=== PATIENT | female | born 1970 | race Caucasian/White ===

== ENCOUNTER 2020-06-08 12:44 | Outpatient (CLI) | payer BC, SELFPAY ==
--- NOTE | 2020-06-08 12:53 | XRR_ITS ---
PROCEDURE INFORMATION: Exam: XR Right Knee Exam date and time: 06/08/2020 1:05 PM Age: 49 years old Clinical indication: Right; Patient HX: C/O pain RT knee x 6 months; Additional info: Knee pain TECHNIQUE: Imaging protocol: XR Right knee. Views: 3 views. COMPARISON: No relevant prior studies available. FINDINGS: Bones/joints: There is a mild narrowing and sclerosis in the medial compartment with a bone spur involving the medial condyle of the femur. These findings are consistent with mild osteoarthritis. The lateral compartment and patellofemoral compartment are unremarkable. The exam is negative for acute bony abnormalities. Soft tissues: There is a small suprapatellar bursa effusion XR/XR knee RT 3V* [id number] IMPRESSION: No acute bony abnormality Mild osteoarthritis. Small suprapatellar bursa effusion
== END 2020-06-08 12:45 | disposition home or self-care (01) ==
PROVIDERS: Family Provider Family Medicine; Visit Provider Family Medicine
DX: M17.11 Unilateral primary osteoarthritis, right knee (principal); M25.461 Effusion, right knee
CPT/HCPCS: 73562

== ENCOUNTER 2020-07-06 10:13 | Outpatient (CLI) | payer BC, SELFPAY ==
--- NOTE | 2020-07-06 10:32 | MR_ITS ---
WS: [id number] MRI BRAIN WITHOUT CONTRAST HISTORY: DIZZINESS Study was ordered with contrast but patient has refused contrast at this time. COMPARISON: None available. TECHNIQUE: Diffusion imaging, multiplanar T1, T2 and FLAIR imaging obtained. Large well-circumscribed mass with varied signal intensity centered in the posterior RIGHT frontal re gion. Mass measures 3.9 x 4.3 x 4.9 cm. Low signal on the T1 sequence with mixed intermediate and low signal on the T2 and FLAIR signals. There are a few scattered areas within the mass which may be hem osiderin or calcification. ADC map is low signal in the diffusion sequence is increased signal. This is a well-circumscribed mass with slight lobulation. Due to the CSF clefts in the displacement of the cerebrum this is probably an extra-axial mass. Mass is causing approximately 5.5 mm of midline shift to the LEFT. No remote or acute infarcts are volume loss. No ventriculomegaly. No inferior displacement of cerebellar tonsils. The sella turcica and pituitary gland are unremarkabl e. Posterior fossa is also unremarkable. Dural venous sinuses and [place] demonstrate no abnormality on this unenhanced studies. Paranasal sinuses: Clear. Mastoid air cells: Normal. Calvarium and scalp: Intact. Notified Alvarez Cabrera MD at 07/06/2020 1:[address] Cabrera was not available at this time. Report made available for his review. MR/MR head wo con* [id number] IMPRESSION: 1. RIGHT frontal lobe mass measures 3.9 x 4.3 x 4.9 cm with shift of the midli ne structures by 5.5 mm to the LEFT. This may be benign meningioma, suspect ma ss may be extra-axial. Patient refused IV contrast for this examination. Post c ontrast imaging would provide additional information. 2. No ventriculomegaly.
== END 2020-07-06 10:14 | disposition home or self-care (01) ==
LOC: RADSHAW 10:15
PROVIDERS: PCP Family Medicine; Visit Provider Family Medicine
DX: R42 Dizziness and giddiness (principal); R22.0 Localized swelling, mass and lump, head
CPT/HCPCS: 70551

== ENCOUNTER → 2020-09-11 10:19 | Outpatient (BNVA) | payer BC, SELFPAY | PROVIDERS: PCP Family Medicine; Visit Provider Obstetrics & Gynecology | DX: Z12.4 Encounter for screening for malignant neoplasm of cervix (principal) | CPT/HCPCS: 88175 ==

== ENCOUNTER 2020-10-12 12:55 | Outpatient (CLI) | payer BC, SELFPAY ==
--- NOTE | 2020-10-12 13:00 | MM_ITS ---
WS: [id number] BILATERAL DIGITAL SCREENING MAMMOGRAPHY WITH CAD CLINICAL INFORMATION: SCREENING HISTORY: Screening mammogram. No current complaints. COMPARISON: [id number] TECHNIQUE: Bilateral CC and MLO views. FINDINGS: The breasts are composed of heterogeneous fibroglandular density tissue, which can limit the detectio n of small underlying mass lesions. No suspicious mass, asymmetry, calcifications, or architectural d istortion. No evidence of malignancy. MM/[place] [id number] IMPRESSION: BI-RADS: 1-Negative FOLLOW UP: 1 Year Follow-up Recommend return to annual screening mammography.
== END 2020-10-12 12:56 | disposition home or self-care (01) ==
LOC: RADSHAW 12:59
PROVIDERS: PCP Family Medicine; Visit Provider Family Medicine
DX: Z12.31 Encounter for screening mammogram for malignant neoplasm of breast (principal)
CPT/HCPCS: 77067

== ENCOUNTER 2020-10-18 10:37 | Outpatient (CLI) | payer BC, SELFPAY ==
--- NOTE | 2020-10-18 10:42 | FL_ITS ---
WS: [id number] Exam: FL barium swallow modified [id number] Date/Time of Exam: 10/18/2020 10:45 AM Reason For Exam: Other dysphagia Fluoroscopy time: 3.2 minutes Modified barium swallow was performed in conjunction with the speech therapy department. Swallowing function at the level of oropharynx was normal. There was no sign of aspiration or penetra tion into the laryngeal inlet. The patient tolerated thin liquid, pudding consistency and solid bariu m mixture foodstuffs without aspiration or penetration. Esophageal motility was grossly normal. FL/FL barium swallow modifd [id number] IMPRESSION: 1. Modified barium swallow showing no evidence of aspiration or penetration int o the laryngeal inlet.
== END 2020-10-18 10:38 | disposition home or self-care (01) ==
LOC: RAD 10:40
PROVIDERS: PCP Family Medicine; Visit Provider Family Medicine
DX: R13.19 Other dysphagia (principal)
CPT/HCPCS: 74230; 92611

== ENCOUNTER 2020-11-14 09:33 | Outpatient (CLI) | payer BC, SELFPAY ==
--- NOTE | 2020-11-14 09:38 | FL_ITS ---
WS: [id number] HISTORY: Patient with nonspecific upper abdominal symptoms. UPPER GI AND SMALL BOWEL FOLLOW THROUGH 11/14/2020. The piece dyeing machine tender film demonstrates a 5 mm left renal calculus. ESOPHAGUS: The swallowing of barium was unremarkable. No abnormality in the cervical esophagus. The thoracic esophagus demonstrated significantly altered motility with retention of barium even in t he upright position. There were multiple tertiary contractions. A small pulsion diverticulum was see n in the mid esophagus during the examination. There was a great deal of spasm at the gastroesophagea l junction however a extensive stricture could not be demonstrated. Small sliding hiatal hernia witho ut significant reflux. The stomach, duodenum, and duodenal sweep were unremarkable. Small bowel: There was fairly rapid transit of barium through the small bowel and into the colon. Mul tiple small bowel loops were evaluated with compression under fluoroscopy. Normal mucosa and normal c aliber of the small bowel. Normal terminal ileum. FL/FL upperGI air smallbowel ser* IMPRESSION: 5 mm left renal calculus. There is significant esophageal dysmotility as described above. The remainder o f the GI tract to the colon was unremarkable.
== END 2020-11-14 09:34 | disposition home or self-care (01) ==
PROVIDERS: PCP Family Medicine; Visit Provider Family Medicine
DX: E79.0 Hyperuricemia without signs of inflammatory arthritis and tophaceous disease (principal); R14.0 Abdominal distension (gaseous); K21.9 Gastro-esophageal reflux disease without esophagitis
CPT/HCPCS: 74246; 74248

== ENCOUNTER → 2021-12-20 13:28 | Outpatient (BNVA) | payer MEDICAID, SELFPAY | PROVIDERS: PCP Family Medicine; Visit Provider Nurse Practitioner Psychiatric/Mental Health | DX: F33.1 Major depressive disorder, recurrent, moderate (principal) | CPT/HCPCS: 90792 ==

== ENCOUNTER 2021-12-24 13:36 | Outpatient (CLI) | payer MEDICAID, SELFPAY ==
--- NOTE | 2021-12-24 14:00 | MM_ITS ---
WS: [id number] BILATERAL DIGITAL SCREENING MAMMOGRAPHY WITH CAD CLINICAL INFORMATION: Z12.39 - Encounter for other screening for malignant neop... HISTORY: Screening mammogram. No current complaints. COMPARISON: October 12, 2020 TECHNIQUE: Bilateral CC and MLO views. FINDINGS: Scattered fibroglandular densities bilaterally. No suspicious focal mass, asymmetry, calcifications, or architectural distortion. No evidence of malignancy. MM/[place] [id number] IMPRESSION: BI-RADS: 1-Negative FOLLOW UP: 1 Year Follow-up Recommend return to annual screening mammography.
== END 2021-12-24 13:37 | disposition home or self-care (01) ==
PROVIDERS: PCP Family Medicine; Visit Provider Obstetrics & Gynecology
DX: Z12.31 Encounter for screening mammogram for malignant neoplasm of breast (principal)
CPT/HCPCS: 77067

== ENCOUNTER → 2022-01-14 13:45 | Outpatient (BNVA) | payer MEDICAID, SELFPAY | PROVIDERS: PCP Family Medicine; Visit Provider Nurse Practitioner Psychiatric/Mental Health | DX: F33.1 Major depressive disorder, recurrent, moderate (principal); E03.9 Hypothyroidism, unspecified | CPT/HCPCS: 99214 ==

== ENCOUNTER 2022-02-14 12:00 | Outpatient (CLI) | payer MEDICAID, SELFPAY | END 2022-02-14 12:01 | disposition home or self-care (01) | LOC: SLEEP 02-18 08:38 | PROVIDERS: PCP Family Medicine; Visit Provider Family Medicine | DX: G47.33 Obstructive sleep apnea (adult) (pediatric) (principal) | CPT/HCPCS: G0399 ==

== ENCOUNTER → 2022-02-18 14:49 | Outpatient (BNVA) | payer MEDICAID, SELFPAY | PROVIDERS: PCP Family Medicine; Visit Provider Nurse Practitioner Psychiatric/Mental Health | DX: F33.1 Major depressive disorder, recurrent, moderate (principal); E03.9 Hypothyroidism, unspecified | CPT/HCPCS: 99213 ==

== ENCOUNTER → 2022-04-19 13:41 | Outpatient (BNVA) | payer MEDICAID, SELFPAY | PROVIDERS: PCP Family Medicine; Visit Provider Counselor Professional | DX: F33.1 Major depressive disorder, recurrent, moderate (principal) | CPT/HCPCS: 90837; 90834 ==

== ENCOUNTER → 2022-04-22 09:27 | Outpatient (BNVA) | payer MEDICAID, SELFPAY | PROVIDERS: PCP Family Medicine; Visit Provider Internal Medicine Rheumatology | DX: M15.9 Polyosteoarthritis, unspecified (principal); Z79.899 Other long term (current) drug therapy; M10.9 Gout, unspecified | CPT/HCPCS: 73630; 84550; 85651; 86140; 86200; 86431; 99204; 99214 ==

== ENCOUNTER → 2022-04-26 14:47 | Outpatient (BNVA) | payer MEDICAID, SELFPAY | PROVIDERS: PCP Family Medicine; Visit Provider Counselor Professional | DX: F33.1 Major depressive disorder, recurrent, moderate (principal) | CPT/HCPCS: 90834 ==

== ENCOUNTER → 2022-05-02 09:50 | Outpatient (BNVA) | payer MEDICAID, SELFPAY | PROVIDERS: PCP Family Medicine; Visit Provider Counselor Professional | DX: F33.1 Major depressive disorder, recurrent, moderate (principal) | CPT/HCPCS: 90834 ==

== ENCOUNTER → 2022-05-08 09:54 | Outpatient (BNVA) | payer MEDICAID, SELFPAY | PROVIDERS: PCP Family Medicine; Visit Provider Counselor Professional | DX: F33.1 Major depressive disorder, recurrent, moderate (principal) | CPT/HCPCS: 90834 ==

== ENCOUNTER → 2022-05-13 14:44 | Outpatient (BNVA) | payer MEDICAID, SELFPAY | PROVIDERS: PCP Family Medicine; Visit Provider Nurse Practitioner Psychiatric/Mental Health | DX: F33.1 Major depressive disorder, recurrent, moderate (principal); G47.33 Obstructive sleep apnea (adult) (pediatric); Z99.89 Dependence on other enabling machines and devices | CPT/HCPCS: 99214 ==

== ENCOUNTER → 2022-05-16 13:51 | Outpatient (BNVA) | payer MEDICAID, SELFPAY | PROVIDERS: PCP Family Medicine; Visit Provider Counselor Professional | DX: F33.1 Major depressive disorder, recurrent, moderate (principal) | CPT/HCPCS: 90834 ==

== ENCOUNTER → 2022-05-30 13:52 | Outpatient (BNVA) | payer MEDICAID, SELFPAY | PROVIDERS: PCP Family Medicine; Visit Provider Counselor Professional | DX: F33.1 Major depressive disorder, recurrent, moderate (principal) | CPT/HCPCS: 90834 ==

== ENCOUNTER 2022-06-06 13:19 | Outpatient (CLI) | payer MEDICAID, SELFPAY ==
[2022-06-06 13:58] LABS: Uric Acid 5.3 mg/dL (2.4-5.7)
== END 2022-06-06 13:20 | disposition home or self-care (01) ==
LOC: LAB 13:23
PROVIDERS: PCP Family Medicine; Visit Provider Internal Medicine Rheumatology
DX: M10.9 Gout, unspecified (principal)
CPT/HCPCS: 84550

== ENCOUNTER → 2022-07-23 14:36 | Outpatient (BNVA) | payer MEDICAID, SELFPAY | PROVIDERS: PCP Family Medicine; Visit Provider Internal Medicine Rheumatology | DX: M17.0 Bilateral primary osteoarthritis of knee (principal); M18.0 Bilateral primary osteoarthritis of first carpometacarpal joints; M10.9 Gout, unspecified | CPT/HCPCS: 99214 ==

== ENCOUNTER 2022-08-15 06:00 | Outpatient (RCR) | payer MEDICAID, SELFPAY | END 2022-08-30 23:59 | disposition home or self-care (01) | LOC: SPT 06:00 | PROVIDERS: PCP Family Medicine; Visit Provider Internal Medicine Rheumatology | DX: M19.90 Unspecified osteoarthritis, unspecified site (principal); M25.569 Pain in unspecified knee; G89.29 Other chronic pain | CPT/HCPCS: 97161 ==

== ENCOUNTER → 2022-09-09 14:35 | Outpatient (BNVA) | payer MEDICAID, SELFPAY | PROVIDERS: PCP Family Medicine; Referring Provider Internal Medicine Rheumatology; Visit Provider Specialist | DX: M17.0 Bilateral primary osteoarthritis of knee (principal); M21.161 Varus deformity, not elsewhere classified, right knee; M21.162 Varus deformity, not elsewhere classified, left knee | CPT/HCPCS: 73560; 73565 ==

== ENCOUNTER → 2022-11-08 14:50 | Outpatient (BNVA) | payer MEDICAID, SELFPAY | PROVIDERS: PCP Family Medicine; Visit Provider Obstetrics & Gynecology | DX: Z01.419 Encounter for gynecological examination (general) (routine) without abnormal findings (principal) | CPT/HCPCS: 87624 ==

== ENCOUNTER 2023-01-23 13:51 | Outpatient (CLI) | payer MEDICAID, SELFPAY ==
--- NOTE | 2023-01-23 14:03 | MM_ITS ---
WS: [id number] BILATERAL 3D TOMOSYNTHESIS DIGITAL SCREENING MAMMOGRAPHY WITH CAD CLINICAL INFORMATION: SCREENING HISTORY: Screening mammogram. No current complaints. COMPARISON: December 24, 2021 TECHNIQUE: Bilateral CC and MLO views. FINDINGS: Scattered fibroglandular densities bilaterally. No suspicious focal mass, asymmetry, calcifications, or architectural distortion. No evidence of malignancy. MM/[place] [id number] IMPRESSION: BI-RADS: 1-Negative FOLLOW UP: 1 Year Follow-up Recommend return to annual screening mammography.
== END 2023-01-23 13:52 | disposition home or self-care (01) ==
PROVIDERS: PCP Family Medicine; Visit Provider Family Medicine
DX: Z12.31 Encounter for screening mammogram for malignant neoplasm of breast (principal)
CPT/HCPCS: 77063; 77067

== ENCOUNTER 2023-03-04 10:21 | Outpatient (CLI) | payer MEDICAID, SELFPAY ==
[2023-03-04 10:47] LABS: Basophils # 0.1 10^3/uL (0.0-0.1); Basophils % 0.8 %; Eosinophils # 0.5 10^3/uL (0.0-0.8); Eosinophils % 6.1 %; Hematocrit 41.8 % (37.0-47.0); Hemoglobin 13.6 g/dL (11.5-15.3); Lymphocytes # 2.9 10^3/uL (0.8-4.8); Lymphocytes % 37.2 %; Mean Corpuscular HGB Conc 32.5 g/dL (30.0-36.0); Mean Corpuscular Hemoglobin 28.9 pg (28.0-34.0); Mean Corpuscular Volume 88.7 fl (81-99); Mean Platelet Volume 9.5 fL (7.4-10.4); Monocytes # 0.4 10^3/uL (0.2-0.9); Monocytes % 5.6 %; Neutrophils # 3.85 10^3/uL (1.8-7.7); Neutrophils % 49.9 %; Nucleated Red Blood Cells % 0 %; Platelet Count 264 10^3/cmm (130-400); Red Blood Count 4.71 10^6/uL (4.1-5.3); Red Cell Distribution Width 13.2 % (12.1-15.1); White Blood Count 7.7 10^3/uL (4.0-10.0)
[2023-03-04 11:10] LABS: Alanine Aminotransferase 23 U/L (0-33); Alkaline Phosphatase 94 U/L (35-105); Aspartate Amino Transferase 14 U/L (0-32); C Reactive Protein 7.3 mg/L (0.0-4.9); Globulin 2.7 g/dL (1.3-4.6); Glomerular Filtration Rate 87.2 mL/min (90-130); Total Bilirubin 0.2 mg/dL (0.15-1.2); Total Protein 6.7 g/dL (6.6-8.7); Uric Acid 4.8 mg/dL (2.4-5.7)
== END 2023-03-04 10:22 | disposition home or self-care (01) ==
PROVIDERS: PCP Family Medicine; Visit Provider Internal Medicine Rheumatology
DX: M10.9 Gout, unspecified (principal); Z79.899 Other long term (current) drug therapy; M19.90 Unspecified osteoarthritis, unspecified site
CPT/HCPCS: 36415; 80076; 82565; 84550; 85025; 86140

== ENCOUNTER → 2023-03-05 11:27 | Outpatient (BNVA) | payer MEDICAID, SELFPAY | PROVIDERS: PCP Family Medicine; Visit Provider Internal Medicine Rheumatology | DX: M54.2 Cervicalgia (principal); G89.29 Other chronic pain | CPT/HCPCS: 72040 ==

== ENCOUNTER 2023-06-26 13:32 | Outpatient (CLI) | payer MEDICAID, SELFPAY ==
[2023-06-26 14:26] LABS: Erythrocyte Sedimentation Rate 18 mm/hr (0-15)
[2023-06-26 14:36] LABS: C Reactive Protein 6.4 mg/L (0.0-4.9)
[2023-06-27 16:34] LABS: Anti-Nuclear Antibody Screen NEGATIVE (NEGATIVE)
[2023-06-27 23:54] LABS: HLA-B27 NEGATIVE (NEGATIVE)
[2023-07-07 20:14] LABS: 14.3.3 ETA Protein 0.3 ng/mL (<0.2)
== END 2023-06-26 13:33 | disposition home or self-care (01) ==
LOC: LAB 13:37
PROVIDERS: PCP Family Medicine; Visit Provider Internal Medicine Rheumatology
DX: M10.9 Gout, unspecified (principal); M19.90 Unspecified osteoarthritis, unspecified site; M45.6 Ankylosing spondylitis lumbar region
CPT/HCPCS: 36415; 83520; 85651; 86038; 86140; 86812

== ENCOUNTER → 2023-09-09 10:08 | Outpatient (BNVA) | payer MEDICAID, SELFPAY | PROVIDERS: PCP Family Medicine; Visit Provider Family Medicine | DX: Z51.81 Encounter for therapeutic drug level monitoring (principal); R73.09 Other abnormal glucose; Z13.220 Encounter for screening for lipoid disorders; R03.0 Elevated blood-pressure reading, without diagnosis of hypertension; E55.9 Vitamin D deficiency, unspecified; F32.9 Major depressive disorder, single episode, unspecified; E03.9 Hypothyroidism, unspecified | CPT/HCPCS: 80053; 80061; 82306; 83036; 84550; 85025 ==

== ENCOUNTER → 2023-10-08 13:08 | Outpatient (BNVA) | payer MEDICAID, SELFPAY | PROVIDERS: PCP Family Medicine; Visit Provider Family Medicine | DX: R74.01 Elevation of levels of liver transaminase levels (principal); R73.03 Prediabetes; Z51.81 Encounter for therapeutic drug level monitoring | CPT/HCPCS: 80053; 83036; 85025; 85651; 86141; 86803; 87340 ==

== ENCOUNTER 2023-10-30 08:51 | Outpatient (CLI) | payer MEDICAID, SELFPAY ==
--- NOTE | 2023-10-30 09:30 | US_ITS ---
WS: [id number] RIGHT UPPER QUADRANT ULTRASOUND HISTORY: Elevated transaminases COMPARISON: None available. Liver: 19.1 cm in length. Moderately enlarged liver. Mild diffuse hepatic steatosis. There are also f ocal areas of fatty sparing. No mass or bile duct dilatation. Portal Vein: Normal hepatopetal flow with monophasic waveform. Gallbladder: Prior cholecystectomy. CBD: 0.5 cm Pancreas: Normal size and echogenicity. Right kidney: 11.1 cm in length. Normal size and echogenicity. No hydronephrosis or mass. Aorta and IVC: Unremarkable abdominal aorta and IVC. No ascites. IMPRESSION: 1. Moderate thyromegaly and mild hepatic steatosis with areas of fatty sparing. 2. Prior cholecystectomy.
== END 2023-10-30 08:52 | disposition home or self-care (01) ==
LOC: RAD 08:52
PROVIDERS: PCP Family Medicine; Visit Provider Family Medicine
DX: R74.01 Elevation of levels of liver transaminase levels (principal); R10.9 Unspecified abdominal pain; E01.0 Iodine-deficiency related diffuse (endemic) goiter; K76.0 Fatty (change of) liver, not elsewhere classified; Z90.49 Acquired absence of other specified parts of digestive tract
CPT/HCPCS: 76705

== ENCOUNTER → 2023-12-17 13:24 | Outpatient (BNVA) | payer MEDICAID, SELFPAY | PROVIDERS: PCP Family Medicine; Visit Provider Clinical Nurse Specialist Adult Health | DX: N39.0 Urinary tract infection, site not specified (principal) | CPT/HCPCS: 81000; 87086 ==

== ENCOUNTER 2024-01-28 14:46 | Outpatient (CLI) | payer MEDICAID, SELFPAY ==
--- NOTE | 2024-01-28 14:51 | MM_ITS ---
WS: [id number] BILATERAL 3D TOMOSYNTHESIS DIGITAL SCREENING MAMMOGRAPHY WITH CAD CLINICAL INFORMATION: SCREENING HISTORY: Screening mammogram. No current complaints. COMPARISON: 01/23/2023 TECHNIQUE: Bilateral CC and MLO views. FINDINGS: Scattered fibroglandular densities bilaterally. No suspicious focal mass, asymmetry, calcifications, or architectural distortion. No evidence of malignancy. IMPRESSION: MM/[place] [id number] BI-RADS: 1-Negative FOLLOW UP: 1 Year Follow-up Recommend return to annual screening mammography.
== END 2024-01-28 14:47 | disposition home or self-care (01) ==
LOC: RAD 14:47
PROVIDERS: PCP Family Medicine; Visit Provider Family Medicine
DX: Z12.31 Encounter for screening mammogram for malignant neoplasm of breast (principal)
CPT/HCPCS: 77063; 77067

== ENCOUNTER 2024-05-05 20:00 | Outpatient (CLI) | payer MEDICAID, SELFPAY | END 2024-05-05 20:01 | disposition home or self-care (01) | LOC: SLEEP 05-06 06:11 | PROVIDERS: PCP Family Medicine; Visit Provider Nurse Practitioner Psychiatric/Mental Health | DX: R53.83 Other fatigue (principal) | CPT/HCPCS: 95810 ==

== ENCOUNTER 2024-05-11 16:46 | Outpatient (CLI) | payer MEDICAID, SELFPAY ==
--- NOTE | 2024-05-11 16:54 | XRR_ITS ---
PROCEDURE INFORMATION: Exam: XR Chest Exam date and time: 05/11/2024 4:56 PM Age: 53 years old Clinical indication: Cough and wheezing; Prior surgery; Surgery date: 6+ months; Patient HX: HX of vocal cord cancer, coughing and wheezing x 2 weeks, progressively worse; Additional info: Cough, wheezing TECHNIQUE: Imaging protocol: Radiologic exam of the chest. Views: 2 views. COMPARISON: CR XR cervical spine 3V* [id number] 03/05/2023 11:36 AM FINDINGS: Lungs: Unremarkable. No consolidation. There is elevation of the right hemidiaphragm. Pleural spaces: Unremarkable. No pleural effusion. No pneumothorax. Heart/Mediastinum: Unremarkable. No cardiomegaly. Bones/joints: There is a scoliotic curvature convex right. XR/XR chest 2V* [id number] IMPRESSION: No acute findings.
== END 2024-05-11 16:47 | disposition home or self-care (01) ==
LOC: RAD 16:47
PROVIDERS: PCP Family Medicine; Visit Provider Family Medicine
DX: J40 Bronchitis, not specified as acute or chronic (principal); Z85.21 Personal history of malignant neoplasm of larynx; J98.6 Disorders of diaphragm
CPT/HCPCS: 71046

== ENCOUNTER → 2024-08-25 09:52 | Outpatient (BNVA) | payer MEDICAID, SELFPAY | PROVIDERS: PCP Family Medicine; Visit Provider Family Medicine | DX: R30.0 Dysuria (principal) | CPT/HCPCS: 81000 ==

== ENCOUNTER → 2024-08-30 13:25 | Outpatient (BNVA) | payer MEDICAID, SELFPAY | PROVIDERS: PCP Family Medicine; Visit Provider Family Medicine | DX: R30.0 Dysuria (principal) | CPT/HCPCS: 87086 ==

== ENCOUNTER 2024-12-04 16:50 | Emergency (ER) | payer MEDICAID, SELFPAY ==
[2024-12-04 16:57] VITALS: BP 169/86; PULSE 91; RESP 16; TEMP 36.5; O2SAT 97
--- NOTE | 2024-12-04 17:18 | W.ED.NAVMDI ---
Documented by User: Sami Seo DO 12/08/24 09:19 HPI - Nausea/Vomiting/Diarrhea General: Chief complaint: Nausea/Vomiting/Diarrhea Stated complaint: dizzy; nausea Time Seen by Provider: 12/04/24 17:08 History of Present Illness: 54-year-old female presents to the emergency room with complaint of nausea vomiting started 2 hours ago she had some dizziness as well. She has had dizziness for about 5 days no fever sweats chills no medic easy melena hematemesis cough Alvarez but she previously has had a cholecystectomy. Associated nausea: Yes Associated symtoms: Reports nausea; Denies chest pain or dysuria Related Data Home Medications Medication Instructions Recorded Confirmed mometasone 50 mcg/actuation nasal 2 spray intranasal DAILY PRN 09/11/20 11/29/24 spray (Nasonex) multivitamin combination no.55 See Rx Instructions PO .COMPLEX 09/11/20 11/29/24 loratadine 10 mg tablet (Claritin) 10 mg PO DAILY PRN 12/20/21 11/29/24 famotidine 20 mg tablet 20 mg PO BID 09/09/23 11/29/24 levothyroxine 100 mcg tablet 100 mcg PO DAILY 10/16/23 11/29/24 (Synthroid) pregabalin 25 mg capsule (Lyrica) 75 mg PO BID 08/24/24 11/29/24 liraglutide 0.6 mg/0.1 mL (18 mg/3 1.8 mg SUBCUT DAILY 11/29/24 11/29/24 mL) subcutaneous pen injector (Victoza 2-Jacky) Previous Rx's Medication Instructions Recorded tubing #1 ea 11/29/22 cyclobenzaprine 10 mg tablet 10 mg PO TID PRN muscle spasm #30 03/05/23 tabs diclofenac sodium 1 % topical gel 2 g topical QID #100 grams 04/29/23 simethicone 125 mg chewable tablet 125 mg PO TID PRN abdominal 04/29/23 (Gas Relief (simethicone)) distention #90 tabs albuterol sulfate 90 mcg/actuation 2 puff inhalation Q6H PRN 05/11/24 aerosol inhaler (ProAir HFA) shortness of breath or wheezing #8.5 grams Oxygen via nc 2l/min #1 ea 06/01/24 meloxicam 15 mg tablet See Rx Instructions .Route 08/04/24 .COMPLEX #90 tabs fluoxetine 20 mg/5 mL (4 mg/mL) 20 mg (5 mL) PO QAM #120 mL 08/24/24 oral solution Oxygen mask #1 ea 09/03/24 allopurinol 300 mg tablet 300 mg PO DAILY #90 tabs 10/05/24 alprazolam 0.25 mg tablet 0.25 mg PO .COMPLEX PRN anxiety 10/25/24 #60 tabs zolpidem 10 mg tablet 10 mg PO .qhs for sleep #30 tabs 11/05/24 ibuprofen 100 mg/5 mL oral See Rx Instructions .Route 11/29/24 suspension (Children's Ibuprofen) .COMPLEX #473 mL meclizine 25 mg tablet 25 mg PO TID PRN dizziness #20 tabs 12/04/24 ondansetron 4 mg disintegrating 4 mg PO Q8H #20 tabs 12/04/24 tablet Allergies Allergy/AdvReac Type Severity Reaction Status Date / Time latex Allergy Severe Unknown Verified 08/24/24 14:50 leflunomide AdvReac Intermediate N/V Verified 08/24/24 14:50 tramadol AdvReac Intermediate nausea/vomi Verified 08/24/24 14:50 ting bupropion [From Wellbutrin] AdvReac Unknown Vomiting Verified 08/24/24 14:50 lithium AdvReac Unknown Vomiting Verified 08/24/24 14:50 Review of Systems Const: Denies: fever(s) or chills Card: Denies: chest pain Resp: Denies: dyspnea GI: Reports: nausea and vomiting; Denies: abdominal pain : Denies: dysuria, urinary frequency or urinary urgency Musc: Denies: neck pain or back pain Skin/Breast: Denies: rash PFSH ED PFSH: Medical History Fatigue Major depressive disorder, recurrent, in partial remission Anxiety Insomnia Osteoarthritis of carpometacarpal (CMC) joint of both thumbs Attention deficit disorder of adult MARIA GUADALUPE on CPAP Osteoarthritis of knees, bilateral Psychiatric care Gout Diagnosed in 2019 and is on medication for this managed by her primary care provider Meningioma, cerebral Surgical removal on 08/14/2020. Work on changing her medication shortly after surgery but has not needed to continue this. -Follows with neurosurgeon Dr. Sarah Owusu in [facility] Laryngeal cancer (~1992) Diagnosed in 1992 and she just had a biopsy. Also had radiation in 1992. Depression Anxiety and depression diagnosed in 2016 and has been on medication managed by her primary care provider Hypothyroidism Diagnosed in her 30s and has been on medication managed by her [employer] consultant Dr. Davidson in [place] Surgical History S/P biopsy (~01/2008) Excision of mass from vocal cords S/P biopsy (~1992) Vocal cord biopsy. Diagnosed with laryngeal cancer. S/P brain surgery (08/14/20) Meningioma removed. Performed at [facility] in [place], [place] S/P laparoscopic cholecystectomy (~03/2000) Performed in [place], [place] Family History Mother Hyperlipidemia Hypertension Thyroid disease CAD (coronary artery disease) Grandmother Stroke Paternal grandmother: TIA Hypertension Paternal Father Hypertension Heart disease Family/Other Breast cancer Cousin x 2, diagnosed in late 50s Denies family history of Colon cancer Ovarian cancer Uterine cancer Social History Smoking and tobacco/nicotine status: never used tobacco/nicotine Alcohol intake: never Substance/Drug Use: never Physical Exam Const: COMMON NORMALS: no acute distress GENERAL APPEARANCE: cooperative and comfortable ORIENTATION/CONSCIOUSNESS: Yes awake, Yes oriented to person, Yes oriented to place and Yes oriented to time HENMT: COMMON NORMALS: normocephalic, atraumatic and hearing grossly normal bilaterally HEAD & SCALP: normocephalic and atraumatic Resp: COMMON NORMALS: normal respiratory effort, No retractions, No use of accessory muscles and clear to auscultation bilaterally AUSCULTATION: clear to auscultation bilaterally Cardio: COMMON NORMALS: regular rate, regular rhythm and No murmurs present (Cardio) RATE: regular rate RHYTHM: regular rhythm GI: COMMON NORMALS: Soft to palpation and No hepatosplenomegaly present AUSCULTATION: Yes normoactive bowel sounds PALPATION: Yes Soft to palpation, No Tenderness to palpation present (GI), No Guarding due to palpation present (GI) and Yes No hepatosplenomegaly present Extremity: COMMON NORMALS: normal to inspection, capillary refill normal, no clubbing, cyanosis or edema, no calf tenderness and no pedal edema Neuro: SENSORIUM/ORIENTATION: Yes oriented to person, Yes oriented to place and Yes oriented to time Skin: COMMON NORMALS: no rashes or lesions noted GENERAL SKIN EXAM: no rashes or lesions noted Course Vital Signs: Vital signs: Vital Signs Temperature 97.7 F 12/04/24 16:57 Pulse Rate 78 12/04/24 21:38 Respiratory Rate 18 12/04/24 21:38 Blood Pressure 154/98 12/04/24 21:38 Pulse Oximetry 98 12/04/24 21:38 Oxygen Delivery Me thod Room Air 12/04/24 18:26 MDM - Nausea/Vomiting/Diarrhea Medical Decision Making Care signed out to Dr. Magallanes at change of shift. See final notes for diagnosis and disposition. 54-year-old female checked out to me at shift change. She has dizziness, nausea and vomiting. Exam is as above. CBC is normal. BMP is not remarkable. Liver enzymes are not remarkable significantly. Her lipase is 20. CT of the head shows prior craniotomy changes without hemorrhage or swelling. Abdominal CT shows nothing acute. The patient has walked without assistance in the emergency room. No further vomiting since Zofran. She will be allowed discharge. Lab Data 12/04/24 17:00 12/04/24 17:00 Radiology Impressions Abdomen/Pelvis CT 12/04/24 18:26 IMPRESSION: 1. No evidence of acute abnormality in the abdomen or pelvis. Head CT 12/04/24 18:26 IMPRESSION: 1. Posterior right frontal lobe craniotomy with underlying encephalomalacia likely related to reported prior meningioma resection. 2. No acute intracranial abnormality. Laboratory Results WBC 8.98 10^3/uL (3.29-11.43) 12/04/24 17:00 RBC 5.01 10^6/uL (3.85-5.65) 12/04/24 17:00 Hgb 14.90 g/dL (11.27-16.99) 12/04/24 17:00 Hct 45.7 % (36-47) 12/04/24 17:00 MCV 91.2 fl (85-98) 12/04/24 17:00 MCH 29.7 pg (27-33) 12/04/24 17:00 MCHC 32.6 g/dL (30-55) 12/04/24 17:00 RDW 13.2 % (12.1-15.1) 12/04/24 17:00 Plt Count 269 10^3/cmm (157-399) 12/04/24 17:00 MPV 9.9 fL (7.4-10.4) 12/04/24 17:00 Neut % (Auto) 56.7 % 12/04/24 17:00 Lymph % (Auto) 32.9 % 12/04/24 17:00 [place] % (Auto) 6.1 % 12/04/24 17:00 Eos % (Auto) 3.3 % 12/04/24 17:00 Baso % (Auto) 0.7 % 12/04/24 17:00 Neut # (Auto) 5.09 10^3/uL (1.8-7.7) 12/04/24 17:00 Lymph # (Auto) 3.0 10^3/uL (0.8-4.8) 12/04/24 17:00 [place] # (Auto) 0.6 10^3/uL (0.2-0.9) 12/04/24 17:00 Eos # (Auto) 0.3 10^3/uL (0.0-0.8) 12/04/24 17:00 Baso # (Auto) 0.1 10^3/uL (0.0-0.1) 12/04/24 17:00 Nucleated RBC % (auto) 0 % 12/04/24 17:00 Nucleated RBCs # 0.0 /100WBC 12/04/24 17:00 Sodium 140 mmol/L (136-145) 12/04/24 17:00 Potassium 3.9 mmol/L (3.5-5.1) 12/04/24 17:00 Chloride 99 mmol/L (98-107) 12/04/24 17:00 Carbon Dioxide 30 mmol/L (22-29) H 12/04/24 17:00 Anion Gap 14.9 (5-19) 12/04/24 17:00 BUN 17 mg/dL (6-20) 12/04/24 17:00 Creatinine 0.7 mg/dL (0.5-0.9) 12/04/24 17:00 GFR Calculation 86.6 mL/min (90-130) L 12/04/24 17:00 Glucose 102 mg/dL (65-115) 12/04/24 17:00 Calculated Osmolality 292 mOsm/kg (285-295) 12/04/24 17:00 Calcium 9.8 mg/dL (8.5-10.5) 12/04/24 17:00 Total Bilirubin 0.3 mg/dL (0.15-1.2) 12/04/24 17:00 AST 33 U/L (0-32) H 12/04/24 17:00 ALT 48 U/L (0-33) H 12/04/24 17:00 Alkaline Phosphatase 96 U/L (35-105) 12/04/24 17:00 Total Protein 7.5 g/dL (6.6-8.7) 12/04/24 17:00 Albumin 4.3 g/dL (3.5-5.2) 12/04/24 17:00 Globulin 3.2 g/dL (1.3-4.6) 12/04/24 17:00 Lipase 20 U/L (13-60) 12/04/24 17:00 Urine Color Yellow (Yellow) 12/04/24 20:15 Urine Appearance Clear (CLEAR) 12/04/24 20:15 Urine pH 7.5 (5-7) 12/04/24 20:15 Ur Specific [place] 1.029 (1.005-1.030) 12/04/24 20:15 Urine Protein Negative (Negative) 12/04/24 20:15 Urine Glucose (UA) Negative (Normal) 12/04/24 20:15 Urine Ketones Negative (Negative) 12/04/24 20:15 Urine Blood Negative (Negative) 12/04/24 20:15 Urine Nitrate Negative (Negative) 12/04/24 20:15 Urine Bilirubin Negative (Negative) 12/04/24 20:15 Urine Urobilinogen 0.2 mg/dL (Negative) 12/04/24 20:15 Ur Leukocyte Esterase Negative (Negative) 12/04/24 20:15 Urine RBC 0-2 /hpf (0-2) 12/04/24 20:15 Urine WBC 0-5 /hpf (0-5) 12/04/24 20:15 Ur Squamous Epith Cells 11-20 /hpf (0-5) 12/04/24 20:15 Amorphous Sediment Not Reportable 12/04/24 20:15 Urine Bacteria None seen /hpf (NONE) 12/04/24 20:15 Hyaline Casts 0.40 /lpf 12/04/24 20:15 Discharge Plan Discharge Patient Disposition: Home Clinical Impression: Acute nausea with nonbilious vomiting Condition: Stable Prescriptions: New meclizine 25 mg tablet 25 mg PO TID PRN (Reason: dizziness) Qty: 20 0RF Continued ondansetron 4 mg tablet,disintegrating 4 mg PO Q8H Qty: 20 2RF No Action multivitamin combination no.55 Tablet,Chewable See Rx Instructions PO .COMPLEX Rx Instructions: PO daily; mometasone [Nasonex] 50 mcg/actuation spray,non-aerosol 2 spray INTRANASAL DAILY PRN Rx Instructions: administer into each nostril loratadine [Claritin] 10 mg tablet 10 mg PO DAILY PRN famotidine 20 mg tablet 20 mg PO BID simethicone [Gas Relief (simethicone)] 125 mg tablet,chewable 125 mg PO TID PRN (Reason: abdominal distention) Qty: 90 11RF pregabalin [Lyrica] 25 mg capsule 75 mg PO BID (DME) Oxygen via nc 2l/min See Rx Instructions .Route .MEDSUPPLY Qty: 1 0RF Rx Instructions: As directed - to be used at night while sleeping - With humidifier cyclobenzaprine 10 mg tablet 10 mg PO TID PRN (Reason: muscle spasm) Qty: 30 0RF levothyroxine [Synthroid] 100 mcg tablet 100 mcg PO DAILY albuterol sulfate [ProAir HFA] 90 mcg/actuation HFA aerosol inhaler 2 puff inhalation Q6H PRN (Reason: shortness of breath or wheezing) Qty: 8.5 6RF fluoxetine 20 mg/5 mL (4 mg/mL) solution 20 mg PO QAM Qty: 120 3RF Rx Instructions: Take 5 ml by mouth every morning liraglutide [Victoza 2-Jacky] 0.6 mg/0.1 mL (18 mg/3 mL) pen injector 1.8 mg SUBCUT DAILY ibuprofen [Children's Ibuprofen] 100 mg/5 mL suspension See Rx Instructions .ROUTE .COMPLEX Qty: 473 4RF Dose Instruction: TAKE 30ml BY MOUTH THREE TIMES DAILY NEEDED FOR PAIN Rx Instructions: TAKE 30ml BY MOUTH THREE TIMES DAILY NEEDED FOR PAIN (DME) tubing See Rx Instructions .Route .MEDSUPPLY Qty: 1 0RF Rx Instructions: heated humidifier tubing X 2 with refills for a year diclofenac sodium 1 % gel 2 g topical QID Qty: 100 2RF Rx Instructions: apply to affected area as needed meloxicam 15 mg tablet See Rx Instructions .ROUTE .COMPLEX Qty: 90 3RF Hold Instructions: Doctor's Order Dose Instruction: TAKE 1 TABLET BY MOUTH EVERY DAY Rx Instructions: TAKE 1 TABLET BY MOUTH EVERY DAY (DME) Oxygen mask See Rx Instructions .Route .MEDSUPPLY Qty: 1 0RF Rx Instructions: As directed - to be used for oxygen delivery at night allopurinol 300 mg tablet 300 mg PO DAILY Qty: 90 3RF alprazolam 0.25 mg tablet 0.25 mg PO .COMPLEX PRN (Reason: anxiety) Qty: 60 3RF Rx Instructions: 0.25 mg PO Take 1-2 tablet by mouth TID PRN; zolpidem 10 mg tablet 10 mg PO .qhs Qty: 30 5RF Discharge Orders: Discharge ED (Routine); Ordered 12/04/24 Ordered By: Yfn Magallanes Referrals: Alvarez Cabrera MD [Primary Care Provider] - 1-3 days Patient Instructions: Acute Nausea and Vomiting (ED), Opioid Safety, Pain Management Activity Restrictions/Additional Instructions: Your CAT scans and laboratory did not reveal a cause of dizziness or vomiting. He will be treated symptomatically. Your blood pressure was high. Continue to check your blood pressure, if it remains elevated, treatment may be necessary. Follow a liquid diet for the next 24 hours. Take nausea medication scheduled for the next 24 hours, then as needed for nausea following that. If you remain dizzy, take medication as needed for dizziness as well. Return for any problems. See your doctor next week. Coding Level of Care Code ED Assistant for Chg Anuradhad Documented by User: Yfn Pino Elpidio, DO 12/05/24 15:14 HPI - Nausea/Vomiting/Diarrhea General: Chief complaint: Nausea/Vomiting/Diarrhea Stated complaint: dizzy; nausea Time Seen by Provider: 12/04/24 17:08 Related Data Home Medications Medication Instructions Recorded Confirmed mometasone 50 mcg/actuation nasal 2 spray intranasal DAILY PRN 09/11/20 11/29/24 spray (Nasonex) multivitamin combination no.55 See Rx Instructions PO .COMPLEX 09/11/20 11/29/24 loratadine 10 mg tablet (Claritin) 10 mg PO DAILY PRN 12/20/21 11/29/24 famotidine 20 mg tablet 20 mg PO BID 09/09/23 11/29/24 levothyroxine 100 mcg tablet 100 mcg PO DAILY 10/16/23 11/29/24 (Synthroid) pregabalin 25 mg capsule (Lyrica) 75 mg PO BID 08/24/24 11/29/24 liraglutide 0.6 mg/0.1 mL (18 mg/3 1.8 mg SUBCUT DAILY 11/29/24 11/29/24 mL) subcutaneous pen injector ([facility] Mack 2-Jacky) Previous Rx's Medication Instructions Recorded tubing #1 ea 11/29/22 cyclobenzaprine 10 mg tablet 10 mg PO TID PRN muscle spasm #30 03/05/23 tabs diclofenac sodium 1 % topical gel 2 g topical QID #100 grams 04/29/23 simethicone 125 mg chewable tablet 125 mg PO TID PRN abdominal 04/29/23 (Gas Relief (simethicone)) distention #90 tabs albuterol sulfate 90 mcg/actuation 2 puff inhalation Q6H PRN 05/11/24 aerosol inhaler (ProAir HFA) shortness of breath or wheezing #8.5 grams Oxygen via nc 2l/min #1 ea 06/01/24 meloxicam 15 mg tablet See Rx Instructions .Route 08/04/24 .COMPLEX #90 tabs fluoxetine 20 mg/5 mL (4 mg/mL) 20 mg (5 mL) PO QAM #120 mL 08/24/24 oral solution Oxygen mask #1 ea 09/03/24 allopurinol 300 mg tablet 300 mg PO DAILY #90 tabs 10/05/24 alprazolam 0.25 mg tablet 0.25 mg PO .COMPLEX PRN anxiety 10/25/24 #60 tabs zolpidem 10 mg tablet 10 mg PO .qhs for sleep #30 tabs 11/05/24 ibuprofen 100 mg/5 mL oral See Rx Instructions .Route 11/29/24 suspension (Children's Ibuprofen) .COMPLEX #473 mL meclizine 25 mg tablet 25 mg PO TID PRN dizziness #20 tabs 12/04/24 ondansetron 4 mg disintegrating 4 mg PO Q8H #20 tabs 12/04/24 tablet Allergies Allergy/AdvReac Type Severity Reaction Status Date / Time latex Allergy Severe Unknown Verified 08/24/24 14:50 leflunomide AdvReac Intermediate N/V Verified 08/24/24 14:50 tramadol AdvReac Intermediate nausea/vomi Verified 08/24/24 14:50 ting bupropion [From Wellbutrin] AdvReac Unknown Vomiting Verified 08/24/24 14:50 lithium AdvReac Unknown Vomiting Verified 08/24/24 14:50 PFSH ED PFSH: Medical History Fatigue Major depressive disorder, recurrent, in partial remission Anxiety Insomnia Osteoarthritis of carpometacarpal (CMC) joint of both thumbs Attention deficit disorder of adult MARIA GUADALUPE on CPAP Osteoarthritis of knees, bilateral Psychiatric care Gout Diagnosed in 2019 and is on medication for this managed by her primary care provider Meningioma, cerebral Surgical removal on 08/14/2020. Work on changing her medication shortly after surgery but has not needed to continue this. -Follows with neurosurgeon Dr. Sarah Owusu in [facility] Laryngeal cancer (~1992) Diagnosed in 1992 and she just had a biopsy. Also had radiation in 1992. Depression Anxiety and depression diagnosed in 2016 and has been on medication managed by her primary care provider Hypothyroidism Diagnosed in her 30s and has been on medication managed by her [employer] consultant Dr. Davidson in [place] Surgical History S/P biopsy (~01/2008) Excision of mass from vocal cords S/P biopsy (~1992) Vocal cord biopsy. Diagnosed with laryngeal cancer. S/P brain surgery (08/14/20) Meningioma removed. Performed at [facility] in [place], [place] S/P laparoscopic cholecystectomy (~03/2000) Performed in [place], [place] Family History Mother Hyperlipidemia Hypertension Thyroid disease CAD (coronary artery disease) Grandmother Stroke Paternal grandmother: TIA Hypertension Paternal Father Hypertension Heart disease Family/Other Breast cancer Cousin x 2, diagnosed in late 50s Denies family history of Colon cancer Ovarian cancer Uterine cancer Social History Smoking and tobacco/nicotine status: never used tobacco/nicotine Alcohol intake: never Substance/Drug Use: never Course Vital Signs: Vital signs: Vital Signs Temperature 97.7 F 12/04/24 16:57 Pulse Rate 78 12/04/24 21:38 Respiratory Rate 18 12/04/24 21:38 Blood Pressure 154/98 12/04/24 21:38 Pulse Oximetry 98 12/04/24 21:38 Oxygen Delivery Me thod Room Air 12/04/24 18:26 MDM - Nausea/Vomiting/Diarrhea Medical Decision Making 54-year-old female checked out to me at shift change. She has dizziness, nausea and vomiting. Exam is as above. CBC is normal. BMP is not remarkable. Liver enzymes are not remarkable significantly. Her lipase is 20. CT of the head shows prior craniotomy changes without hemorrhage or swelling. Abdominal CT shows nothing acute. The patient has walked without assistance in the emergency room. No further vomiting since Zofran. She will be allowed discharge. Lab Data 12/04/24 17:00 12/04/24 17:00 Radiology Impressions Abdomen/Pelvis CT 12/04/24 18:26 IMPRESSION: 1. No evidence of acute abnormality in the abdomen or pelvis. Head CT 12/04/24 18:26 IMPRESSION: 1. Posterior right frontal lobe craniotomy with underlying encephalomalacia likely related to reported prior meningioma resection. 2. No acute intracranial abnormality. Laboratory Results WBC 8.98 10^3/uL (3.29-11.43) 12/04/24 17:00 RBC 5.01 10^6/uL (3.85-5.65) 12/04/24 17:00 Hgb 14.90 g/dL (11.27-16.99) 12/04/24 17:00 Hct 45.7 % (36-47) 12/04/24 17:00 MCV 91.2 fl (85-98) 12/04/24 17:00 MCH 29.7 pg (27-33) 12/04/24 17:00 MCHC 32.6 g/dL (30-55) 12/04/24 17:00 RDW 13.2 % (12.1-15.1) 12/04/24 17:00 Plt Count 269 10^3/cmm (157-399) 12/04/24 17:00 MPV 9.9 fL (7.4-10.4) 12/04/24 17:00 Neut % (Auto) 56.7 % 12/04/24 17:00 Lymph % (Auto) 32.9 % 12/04/24 17:00 [place] % (Auto) 6.1 % 12/04/24 17:00 Eos % (Auto) 3.3 % 12/04/24 17:00 Baso % (Auto) 0.7 % 12/04/24 17:00 Neut # (Auto) 5.09 10^3/uL (1.8-7.7) 12/04/24 17:00 Lymph # (Auto) 3.0 10^3/uL (0.8-4.8) 12/04/24 17:00 [place] # (Auto) 0.6 10^3/uL (0.2-0.9) 12/04/24 17:00 Eos # (Auto) 0.3 10^3/uL (0.0-0.8) 12/04/24 17:00 Baso # (Auto) 0.1 10^3/uL (0.0-0.1) 12/04/24 17:00 Nucleated RBC % (auto) 0 % 12/04/24 17:00 Nucleated RBCs # 0.0 /100WBC 12/04/24 17:00 Sodium 140 mmol/L (136-145) 12/04/24 17:00 Potassium 3.9 mmol/L (3.5-5.1) 12/04/24 17:00 Chloride 99 mmol/L (98-107) 12/04/24 17:00 Carbon Dioxide 30 mmol/L (22-29) H 12/04/24 17:00 Anion Gap 14.9 (5-19) 12/04/24 17:00 BUN 17 mg/dL (6-20) 12/04/24 17:00 Creatinine 0.7 mg/dL (0.5-0.9) 12/04/24 17:00 GFR Calculation 86.6 mL/min (90-130) L 12/04/24 17:00 Glucose 102 mg/dL (65-115) 12/04/24 17:00 Calculated Osmolality 292 mOsm/kg (285-295) 12/04/24 17:00 Calcium 9.8 mg/dL (8.5-10.5) 12/04/24 17:00 Total Bilirubin 0.3 mg/dL (0.15-1.2) 12/04/24 17:00 AST 33 U/L (0-32) H 12/04/24 17:00 ALT 48 U/L (0-33) H 12/04/24 17:00 Alkaline Phosphatase 96 U/L (35-105) 12/04/24 17:00 Total Protein 7.5 g/dL (6.6-8.7) 12/04/24 17:00 Albumin 4.3 g/dL (3.5-5.2) 12/04/24 17:00 Globulin 3.2 g/dL (1.3-4.6) 12/04/24 17:00 Lipase 20 U/L (13-60) 12/04/24 17:00 Urine Color Yellow (Yellow) 12/04/24 20:15 Urine Appearance Clear (CLEAR) 12/04/24 20:15 Urine pH 7.5 (5-7) 12/04/24 20:15 Ur Specific [place] 1.029 (1.005-1.030) 12/04/24 20:15 Urine Protein Negative (Negative) 12/04/24 20:15 Urine Glucose (UA) Negative (Normal) 12/04/24 20:15 Urine Ketones Negative (Negative) 12/04/24 20:15 Urine Blood Negative (Negative) 12/04/24 20:15 Urine Nitrate Negative (Negative) 12/04/24 20:15 Urine Bilirubin Negative (Negative) 12/04/24 20:15 Urine Urobilinogen 0.2 mg/dL (Negative) 12/04/24 20:15 Ur Leukocyte Esterase Negative (Negative) 12/04/24 20:15 Urine RBC 0-2 /hpf (0-2) 12/04/24 20:15 Urine WBC 0-5 /hpf (0-5) 12/04/24 20:15 Ur Squamous Epith Cells 11-20 /hpf (0-5) 12/04/24 20:15 Amorphous Sediment Not Reportable 12/04/24 20:15 Urine Bacteria None seen /hpf (NONE) 12/04/24 20:15 Hyaline Casts 0.40 /lpf 12/04/24 20:15 All radiology interpretation(s) finalized by discharge Discharge Plan Discharge Patient Disposition: Home Clinical Impression: Acute nausea with nonbilious vomiting Condition: Stable Prescriptions: New meclizine 25 mg tablet 25 mg PO TID PRN (Reason: dizziness) Qty: 20 0RF Continued ondansetron 4 mg tablet,disintegrating 4 mg PO Q8H Qty: 20 2RF No Action multivitamin combination no.55 Tablet,Chewable See Rx Instructions PO .COMPLEX Rx Instructions: PO daily; mometasone [Nasonex] 50 mcg/actuation spray,non-aerosol 2 spray INTRANASAL DAILY PRN Rx Instructions: administer into each nostril loratadine [Claritin] 10 mg tablet 10 mg PO DAILY PRN famotidine 20 mg tablet 20 mg PO BID simethicone [Gas Relief (simethicone)] 125 mg tablet,chewable 125 mg PO TID PRN (Reason: abdominal distention) Qty: 90 11RF pregabalin [Lyrica] 25 mg capsule 75 mg PO BID (DME) Oxygen via nc 2l/min See Rx Instructions .Route .MEDSUPPLY Qty: 1 0RF Rx Instructions: As directed - to be used at night while sleeping - With humidifier cyclobenzaprine 10 mg tablet 10 mg PO TID PRN (Reason: muscle spasm) Qty: 30 0RF levothyroxine [Synthroid] 100 mcg tablet 100 mcg PO DAILY albuterol sulfate [ProAir HFA] 90 mcg/actuation HFA aerosol inhaler 2 puff inhalation Q6H PRN (Reason: shortness of breath or wheezing) Qty: 8.5 6RF fluoxetine 20 mg/5 mL (4 mg/mL) solution 20 mg PO QAM Qty: 120 3RF Rx Instructions: Take 5 ml by mouth every morning liraglutide [Victoza 2-Jacky] 0.6 mg/0.1 mL (18 mg/3 mL) pen injector 1.8 mg SUBCUT DAILY ibuprofen [Children's Ibuprofen] 100 mg/5 mL suspension See Rx Instructions .ROUTE .COMPLEX Qty: 473 4RF Dose Instruction: TAKE 30ml BY MOUTH THREE TIMES DAILY NEEDED FOR PAIN Rx Instructions: TAKE 30ml BY MOUTH THREE TIMES DAILY NEEDED FOR PAIN (DME) tubing See Rx Instructions .Route .MEDSUPPLY Qty: 1 0RF Rx Instructions: heated humidifier tubing X 2 with refills for a year diclofenac sodium 1 % gel 2 g topical QID Qty: 100 2RF Rx Instructions: apply to affected area as needed meloxicam 15 mg tablet See Rx Instructions .ROUTE .COMPLEX Qty: 90 3RF Hold Instructions: Doctor's Order Dose Instruction: TAKE 1 TABLET BY MOUTH EVERY DAY Rx Instructions: TAKE 1 TABLET BY MOUTH EVERY DAY (DME) Oxygen mask See Rx Instructions .Route .MEDSUPPLY Qty: 1 0RF Rx Instructions: As directed - to be used for oxygen delivery at night allopurinol 300 mg tablet 300 mg PO DAILY Qty: 90 3RF alprazolam 0.25 mg tablet 0.25 mg PO .COMPLEX PRN (Reason: anxiety) Qty: 60 3RF Rx Instructions: 0.25 mg PO Take 1-2 tablet by mouth TID PRN; zolpidem 10 mg tablet 10 mg PO .qhs Qty: 30 5RF Discharge Orders: Discharge ED (Routine); Ordered 12/04/24 Ordered By: Yfn Magallanes Referrals: Alvarez Cabrera MD [Primary Care Provider] - 1-3 days Patient Instructions: Acute Nausea and Vomiting (ED), Opioid Safety, Pain Management Activity Restrictions/Additional Instructions: Your CAT scans and laboratory did not reveal a cause of dizziness or vomiting. He will be treated symptomatically. Your blood pressure was high. Continue to check your blood pressure, if it remains elevated, treatment may be necessary. Follow a liquid diet for the next 24 hours. Take nausea medication scheduled for the next 24 hours, then as needed for nausea following that. If you remain dizzy, take medication as needed for dizziness as well. Return for any problems. See your doctor next week. Coding Level of Care Code ED Assistant for Suzy Licona
[2024-12-04 17:53] VITALS: BP 157/88; PULSE 81; O2SAT 97
[2024-12-04 18:26] VITALS: BP 160/89; PULSE 84; RESP 16; O2SAT 97
[2024-12-04 18:26] LABS: Basophils # 0.1 10^3/uL (0.0-0.1); Basophils % 0.7 %; Eosinophils # 0.3 10^3/uL (0.0-0.8); Eosinophils % 3.3 %; Hematocrit 45.7 % (36-47); Lymphocytes % 32.9 %; Mean Corpuscular HGB Conc 32.6 g/dL (30-55); Mean Corpuscular Hemoglobin 29.7 pg (27-33); Mean Corpuscular Volume 91.2 fl (85-98); Mean Platelet Volume 9.9 fL (7.4-10.4); Monocytes # 0.6 10^3/uL (0.2-0.9); Monocytes % 6.1 %; Neutrophils # 5.09 10^3/uL (1.8-7.7); Neutrophils % 56.7 %; Nucleated Red Blood Cells % 0 %; Platelet Count 269 10^3/cmm (157-399); Red Blood Count 5.01 10^6/uL (3.85-5.65); Red Cell Distribution Width 13.2 % (12.1-15.1); White Blood Count 8.98 10^3/uL (3.29-11.43)
--- NOTE | 2024-12-04 18:26 | CTR_ITS ---
PROCEDURE INFORMATION: Exam: CT Abdomen And Pelvis With Contrast Exam date and time: 12/04/2024 6:47 PM Age: 54 years old Clinical indication: Nausea and vomiting; Abdominal pain; Generalized; Prior surgery; Surgery date: 6+ months; Surgery type: Gb; Patient HX: Diffuse abd pain with n/v; Additional info: Vomiting, nausea, pain TECHNIQUE: Imaging protocol: Computed tomography of the abdomen and pelvis with contrast. Radiation optimization: All CT scans at this facility use at least one of these dose optimization techniques: automated exposure control; mA and/or kV adjustment per patient size (includes targeted exams where dose is matched to clinical indication); or iterative reconstruction. Contrast material: OMNI 350; Contrast volume: 100 ml; Contrast route: INTRAVENOUS (IV); COMPARISON: [place] [id number] 10/30/2023 9:01 AM RADIATION DOSE METRICS: Total DLP (mGy-cm): 1239.82 FINDINGS: Lungs: Subsegmental bibasilar atelectasis. The visualized lung bases are otherwise grossly clear. Diaphragm: No evidence of diaphragmatic defect. Liver: Hepatic steatosis. No evidence of focal hepatic lesion. Gallbladder and biliary ducts: Status post cholecystectomy. No evidence of intrahepatic or extrahepatic biliary dilatation. Pancreas: Unremarkable. Spleen: Unremarkable. Adrenal glands: Unremarkable. Kidneys and ureters: Nonobstructive right-sided renal stones measuring up to 3 mm. Otherwise no renal parenchymal abnormality. No hydronephrosis or ureteral stone. Stomach and bowel: Few scattered colonic diverticula without evidence of acute diverticulitis. No evidence of bowel obstruction or perienteric inflammatory changes. Appendix: Normal appendix. Intraperitoneal space: No evidence of free air or fluid collection. Vasculature: No aneurysmal dilatation or dissection of the abdominal aorta. The celiac trunk, SMA and [place] are grossly patent. No evidence of IVC thrombus. The portal vein, SMV and splenic veins are grossly patent. Lymph nodes: No adenopathy. Urinary bladder: Grossly unremarkable. Reproductive: Uterine fibroids, including a densely calcified fibroid. Otherwise grossly unremarkable. Bones/joints: No evidence of acute fracture or aggressive osseous lesion. Grade 2 anterolisthesis of L5 on S1 secondary to chronic bilateral L5 pars defects. Moderate-severe left-sided foraminal stenosis.Consider correlation with follow-up outpatient MRI if there is concern for neural impingement. Soft tissues: No evidence of fluid collection or hematoma in the superficial soft tissues. CT/CT abdomen pelvis w con* [id number] IMPRESSION: 1. No evidence of acute abnormality in the abdomen or pelvis.
--- NOTE | 2024-12-04 18:26 | CTR_ITS ---
PROCEDURE INFORMATION: Exam: CT Head Without Contrast Exam date and time: 12/04/2024 6:43 PM Age: 54 years old Clinical indication: Dizziness; Prior surgery; Surgery date: 6+ months; Surgery type: Memingioma remmoval 2019; Additional info: Dizzy TECHNIQUE: Imaging protocol: Computed tomography of the head without contrast. Radiation optimization: All CT scans at this facility use at least one of these dose optimization techniques: automated exposure control; mA and/or kV adjustment per patient size (includes targeted exams where dose is matched to clinical indication); or iterative reconstruction. COMPARISON: MR head wo con* [id number] 07/06/2020 11:44 AM RADIATION DOSE METRICS: Total DLP (mGy-cm): 1037.68 FINDINGS: Brain: Encephalomalacia in the right posterior right frontal lobe where there was a previously demonstrated mass. No acute intracranial hemorrhage. Cerebral ventricles: No ventriculomegaly. Paranasal sinuses: Visualized sinuses are unremarkable. No fluid levels. Mastoid air cells: Visualized mastoid air cells are well aerated. Bones: Status post right posterior frontal craniotomy. Soft tissues: Unremarkable. CT/CT head wo con* [id number] IMPRESSION: 1. Posterior right frontal lobe craniotomy with underlying encephalomalacia likely related to reported prior meningioma resection. 2. No acute intracranial abnormality.
[2024-12-04] MEDS: cefTRIAXone 1,000 mg SDV 1000 MG IVP (18:32)
[2024-12-04] MEDS: meclizine 25 mg tablet PO (18:32)
[2024-12-04 18:44] LABS: Alanine Aminotransferase 48 U/L (0-33); Albumin Level 4.3 g/dL (3.5-5.2); Alkaline Phosphatase 96 U/L (35-105); Anion Gap 14.9 (5-19); Aspartate Amino Transferase 33 U/L (0-32); Blood Urea Nitrogen 17 mg/dL (6-20); Calcium 9.8 mg/dL (8.5-10.5); Carbon Dioxide 30 mmol/L (22-29); Chloride 99 mmol/L (98-107); Creatinine Clr Calc Pharmacy 104.3279; Globulin 3.2 g/dL (1.3-4.6); Glomerular Filtration Rate 86.6 mL/min (90-130); Glucose 102 mg/dL (65-115); Lipase 20 U/L (13-60); Osmolality Calculated 292 mOsm/kg (285-295); Potassium 3.9 mmol/L (3.5-5.1); Sodium 140 mmol/L (136-145); Total Bilirubin 0.3 mg/dL (0.15-1.2); Total Protein 7.5 g/dL (6.6-8.7)
[2024-12-04] MEDS: iohexol 350 mg/mL 500 mL Btl (per mL) IV (18:50)
[2024-12-04 20:43] LABS: Bilirubin Urine Negative (Negative); Blood Urine Negative (Negative); Glucose Urine UA Negative (Normal); Ketones Urine Negative (Negative); Leukocyte Esterase Urine Negative (Negative); Nitrate Urine Negative (Negative); Protein Urine Negative (Negative); Specific Gravity, Urine 1.029 (1.005-1.030); Urine Appearance Clear (CLEAR); Urine Color Yellow (Yellow); Urobilinogen Urine 0.2 mg/dL (Negative); pH Urine 7.5 (5-7)
[2024-12-04 20:48] LABS: Add Urine Microscopic? YES; Bacteria Urine None Seen /hpf; RBC Urine 0-2 /hpf (0-2); Universal Test for UA Present (0); WBC Urine 0-5 /hpf (0-5)
[2024-12-04 21:38] VITALS: BP 154/98; PULSE 78; RESP 18; O2SAT 98
== END 2024-12-04 22:05 | disposition home or self-care (01) ==
PROVIDERS: Family Medicine; Emergency Provider Emergency Medicine; PCP Family Medicine
DX: R11.2 Nausea with vomiting, unspecified (principal)
CPT/HCPCS: 70450; 74177; 80053; 81001; 83690; 85025; 87040; 96374; 99285; J0696; J8597

== ENCOUNTER → 2024-12-22 16:12 | Outpatient (BNVA) | payer MEDICAID, SELFPAY | PROVIDERS: PCP Family Medicine; Visit Provider Obstetrics & Gynecology | DX: Z01.419 Encounter for gynecological examination (general) (routine) without abnormal findings (principal) | CPT/HCPCS: 87624 ==

== ENCOUNTER 2025-02-02 12:54 | Outpatient (CLI) | payer MEDICAID, SELFPAY ==
--- NOTE | 2025-02-02 13:00 | MM_ITS ---
WS: [id number] BILATERAL 3D TOMOSYNTHESIS DIGITAL SCREENING MAMMOGRAPHY WITH CAD CLINICAL INFORMATION: SCREENING HISTORY: Screening mammogram. No current complaints. COMPARISON: 2023 TECHNIQUE: Bilateral CC and MLO views. FINDINGS: Scattered fibroglandular densities bilaterally. No suspicious focal mass, asymmetry, calcifications, or architectural distortion. No evidence of malignancy. MM/MM scr BI tomosynthesis [id number] IMPRESSION: DENSITY: There are scattered areas of fibroglandular density. BI-RADS: 1 - Negative. FOLLOW UP: 1 Year Follow-up Recommend return to annual screening mammography.
== END 2025-02-02 12:55 | disposition home or self-care (01) ==
LOC: RAD 12:56
PROVIDERS: PCP Family Medicine; Visit Provider Family Medicine
DX: Z12.31 Encounter for screening mammogram for malignant neoplasm of breast (principal); R92.323 Mammographic fibroglandular density, bilateral breasts
CPT/HCPCS: 77063; 77067

== ENCOUNTER → 2025-03-01 14:38 | Outpatient (BNVA) | payer OTHER, SELFPAY | PROVIDERS: PCP Family Medicine; Visit Provider Nurse Practitioner Psychiatric/Mental Health | DX: F33.1 Major depressive disorder, recurrent, moderate (principal) | CPT/HCPCS: 80061; 83036 ==

== ENCOUNTER → 2025-04-11 13:22 | Outpatient (BNVA) | payer MEDICAID, SELFPAY ==
[2025-03-03 13:00] VITALS: BP 161/100; BMI 38.8
== END ==
PROVIDERS: PCP Family Medicine; Visit Provider Podiatrist Foot & Ankle Surgery
DX: M79.671 Pain in right foot (principal); M79.672 Pain in left foot; E11.42 Type 2 diabetes mellitus with diabetic polyneuropathy; M21.41 Flat foot [pes planus] (acquired), right foot; M21.42 Flat foot [pes planus] (acquired), left foot; M77.41 Metatarsalgia, right foot; M77.42 Metatarsalgia, left foot
CPT/HCPCS: 73630

== ENCOUNTER → 2025-05-09 15:57 | Outpatient (BNVA) | payer OTHER, MEDICAID, SELFPAY ==
[2025-03-03 13:00] VITALS: BP 161/100; BMI 38.8
== END ==
PROVIDERS: PCP Family Medicine; Visit Provider Internal Medicine Rheumatology
DX: Z79.899 Other long term (current) drug therapy (principal); M18.0 Bilateral primary osteoarthritis of first carpometacarpal joints
CPT/HCPCS: 36415; 80076; 82565; 85025; 85651; 86140

== ENCOUNTER → 2025-06-27 10:36 | Outpatient (BNVA) | payer MEDICAID, SELFPAY ==
[2025-03-03 13:00] VITALS: BP 161/100; BMI 38.8
== END ==
PROVIDERS: PCP Family Medicine; Visit Provider Family Medicine
DX: E55.9 Vitamin D deficiency, unspecified (principal); E53.8 Deficiency of other specified B group vitamins; R53.82 Chronic fatigue, unspecified
CPT/HCPCS: 80048; 82306; 82607

== ENCOUNTER 2025-07-25 12:55 | Outpatient (RCR) | payer MEDICAID, SELFPAY ==
[2025-03-03 13:00] VITALS: BP 161/100; BMI 38.8
== END 2025-07-31 23:59 | disposition home or self-care (01) ==
LOC: SPT 12:55
PROVIDERS: PCP Family Medicine; Visit Provider Family Medicine
DX: M25.561 Pain in right knee (principal); M25.562 Pain in left knee; G89.29 Other chronic pain
CPT/HCPCS: 97161

== ENCOUNTER 2025-08-01 05:00 | Outpatient (RCR) | payer MEDICAID, SELFPAY ==
[2025-03-03 13:00] VITALS: BP 161/100; BMI 38.8
== END 2025-08-30 23:59 | disposition home or self-care (01) ==
LOC: SPT 05:00
PROVIDERS: PCP Family Medicine; Visit Provider Family Medicine
DX: M25.561 Pain in right knee (principal); M25.562 Pain in left knee; G89.29 Other chronic pain
CPT/HCPCS: 97110

== ENCOUNTER 2025-08-31 05:00 | Outpatient (RCR) | payer MEDICARE, MEDICAID, SELFPAY ==
[2025-03-03 13:00] VITALS: BP 161/100; BMI 38.8
== END 2025-09-30 23:59 | disposition home or self-care (01) ==
LOC: SPT 05:00
PROVIDERS: PCP Family Medicine; Visit Provider Family Medicine
DX: M25.561 Pain in right knee (principal); M25.562 Pain in left knee; G89.29 Other chronic pain
CPT/HCPCS: 97110

== ENCOUNTER 2025-11-11 15:57 | Outpatient (CLI) | payer MEDICARE, MEDICAID, SELFPAY ==
[2025-03-03 13:00] VITALS: BP 161/100; BMI 38.8
--- NOTE | 2025-11-11 16:04 | XR_ITS ---
WS: [id number] XR tibia fibula RT 2V [id number] REASON FOR EXAM: Firm lesion at the distal fibula 5cm above the lateral mall FINDINGS: No periosteal reaction or focal bone lesion. No bone erosion. No soft tissue abnormality identified. XR/XR tibia fibula RT 2V [id number] IMPRESSION: No significant abnormality.
== END 2025-11-11 15:58 | disposition home or self-care (01) ==
LOC: RAD 16:00
PROVIDERS: PCP Family Medicine; Visit Provider Family Medicine
DX: L98.9 Disorder of the skin and subcutaneous tissue, unspecified (principal)
CPT/HCPCS: 73590